=== PATIENT | female | born 1965 | race Caucasian/White ===

== ENCOUNTER 2017-09-06 17:51 | Emergency (ER) | payer OTHER ==
[2017-09-06] MEDS ORDERED: ACETAMINOPHEN 325 MG TABLET PO ONE (18:19)
[2017-09-06] MEDS ORDERED: ONDANSETRON 4 MG TAB.RAPDIS PO ONE (18:19)
--- NOTE | 2017-09-06 18:23 | ER Document Report ---
ED General - General Chief Complaint: Head Injury without LOC Stated Complaint: HEAD INJURY Time Seen by Provider: 09/06/17 18:13 TRAVEL OUTSIDE OF THE [place] IN LAST 30 DAYS: No - HPI Notes: Patient is a 51-year-old female with a history of hypertension and cervical spine surgeries who presents to the ED complaining of a head injury, neck pain, and laceration to the scalp status post fall prior to arrival. Patient states that she was on the second step of her camper trailer and slipped and hit the back of her head off of the step. Patient states that she currently has a headache and nausea. She did not lose any consciousness. Patient states that she is still ambulatory without any difficulties. states that she is at baseline with her speech and mentation. Denies any drug allergies. Denies any smoking or IV drug use. No alcohol involvement. Denies any fever, changes in vision/speech/mentation/hearing, URI, sore throat, chest pain, palpitations, syncope, cough, shortness of breath, wheeze, dyspnea, abdominal pain, nausea/ vomiting/diarrhea, urinary retention, dysuria, hematuria, loss of control of bowel or bladder, numbness/tingling, saddle anesthesia, muscle paralysis/ weakness, or rash. - Related Data Allergies/Adverse Reactions: No Known Allergies Allergy (Verified 09/06/17 17:58) Past Medical History - Social History Smoking Status: Never Smoker Family History: Reviewed & Not Pertinent Review of Systems - Review of Systems -: Yes All other systems reviewed and negative Physical Exam - Vital signs Vitals: Temp Pulse Resp BP Pulse Ox 98.1 F 99 22 H 117/83 94 09/06/17 17:57 09/06/17 17:57 09/06/17 17:57 09/06/17 17:57 09/06/17 17:57 - Notes Notes: PHYSICAL EXAMINATION: accompanied by female nurse GENERAL: Well-appearing, well-nourished and in no acute distress. A&Ox4. Answers questions appropriately. HEAD: + tenderness to the posterior head. No battlesign. + 2cm laceration to the superoposterior scalp. EYES: Pupils equal round and reactive to light, extraocular movements intact, sclera anicteric, conjunctiva are normal. No raccoon eyes/entrapment. No nystagmus ENT: EAC clear b/l. TM's intact b/l without erythema, fluid, or perforation. Nares patent and without discharge. oropharynx clear without exudates. No tonsilar hypertrophy or erythema. Moist mucous membranes. No sinus tenderness. No hemotympanum/CSF discharge. NECK: Normal range of motion, supple without lymphadenopathy. No rigidity. No midline tenderness. + tenderness midline and paraspinal c-spine. LUNGS: Breath sounds clear to auscultation bilaterally and equal. No wheezes rales or rhonchi. HEART: Regular rate and rhythm without murmurs, rubs, gallops. ABDOMEN: Soft, nontender, nondistended abdomen. No guarding, no rebound. No masses appreciated. Normal bowel sounds present. No CVA tenderness bilaterally. Musculoskeletal: Ext b/l: FROM to passive/active. Strength 5+/5. No deficits noted. No bony tenderness of extremities. Back: FROM to passive/active. Strength 5+/5. No vertebral point tenderness, stepoffs, or deformities. No other bony tenderness or ecchymosis. SLR negative b/l. Extremities: No cyanosis, clubbing, or edema b/l. Peripheral pulses 2+. Capillary refill less than 2 seconds. NEUROLOGICAL: NIH 0. GCS 15. Cranial nerves grossly intact. Normal speech, normal gait. Normal sensory, motor exams. Reflexes 2+ b/l. BRETT's negative. Pronator drift negative. Heel/salazar, finger/nose wnl. PSYCH: Normal mood, normal affect. SKIN: see head exam. Warm, Dry, normal turgor, no rashes or lesions noted. Course - Re-evaluation Re-evalutation: 09/06/17 18:23 C collar placed, scans ordered. Meds also ordered 09/06/17 19:47 Patient is an afebrile, well-hydrated, 51-year-old female who presents to the ED with a head injury and laceration. Vitals are acceptable. PE is otherwise unremarkable for any focal neurological deficits. NIH 0, GCS 15, cranial nerves grossly intact. CT scan of the head and the cervical spine were unremarkable for any acute pathology. 3 murray were placed which approximated wound edges appropriately. Patient tolerated procedure well without any complications. Head injury precautions reviewed. Low suspicion at this time for any meningitis, intracranial hemorrhage, ischemic stroke, or fracture at this time. Patient is aware that her condition can change from initial presentation and that she needs to monitor symptoms closely for any acute changes. I will send her home with a CropUp dispense pack. Conservative measures otherwise for symptoms. Recheck with your PCM in 3-5 days. Return to the ED with any worsening/concerning symptoms otherwise as reviewed discharge. Patient is in agreement. Marion will need removed in 7-9 days. Tdap given today. - Vital Signs Vital signs: Temp Pulse Resp BP Pulse Ox 98.1 F 99 22 H 117/83 94 09/06/17 17:57 09/06/17 17:57 09/06/17 17:57 09/06/17 17:57 09/06/17 17:57 Procedures - Laceration/Wound Repair Head Time completed: 19:45 Wound length (cm): 2 Wound's Depth, Shape: Superficial, Linear Laceration pre-procedure: Sterile PPE donned, Sterile drapes applied, Other - Chlorhexidine/saline Wound explored: Clean, No foreign body removed Irrigated w/ Saline (mLs): 80 Wound Debrided: None Wound Repaired With: Marion Number of Sutures: 3 Layer Closure?: No Post-procedure wound care: Sterile dressing applied Post-procedure NV exam normal: Yes Complications: No Discharge - Discharge Clinical Impression: Head injury Qualifiers: Encounter type: initial encounter Qualified Code(s): S09.90XA - Unspecified injury of head, initial encounter Scalp laceration Qualifiers: Encounter type: initial encounter Qualified Code(s): S01.01XA - Laceration without foreign body of scalp, initial encounter Condition: Stable Disposition: HOME, SELF-CARE Instructions: Soap Cleansing (OM), Antibiotic Ointment Protection (OM) Additional Instructions: Do not shower or bathe for 24 hours. After 24 hours you may shower but no submersion of the wound under water. Keep the original dressing on the wound for 24 hours unless the drainage soaks through. Change the dressing daily thereafter and keep the staple material clean from any dried discharge. You may leave the wound open to the air once there is no more discharge. See your PCM in 3-5 days for a recheck. Monitor for any signs of worsening pain or redness, purulent drainage, streaks, and/or fever. Return to the ED if noticing any of the above symptoms or as needed. Take medications as directed. Your sutures will need to be removed in 7-9 days. Return to the ED with any worsening symptoms and/or development of fever, headache, changes in behavior/mentation/vision/speech, chest pain, palpitations , syncope, shortness of breath, trouble breathing, abdominal pain, n/v/d, blood in stool/urine, loss of control of bowel/bladder, urinary retention, muscle weakness/paralysis, saddle anesthesia, numbness/tingling, or other worsening symptoms that are concerning to you. Referrals: [facility] ([facility] [Provider Group] - Follow up as needed
--- NOTE | 2017-09-06 19:36 | RADIOLOGY REPORT (SQ) ---
EXAM DESCRIPTION: CT CERVICAL SPINE WITHOUT COMPLETED DATE/TIME: 09/06/2017 7:08 pm REASON FOR STUDY: head injury/neck pain s/p fall COMPARISON: None. TECHNIQUE: Axial images acquired through the cervical spine without intravenous contrast. Images re viewed with lung, soft tissue and bone windows. Reconstructed coronal and sagittal MPR images review ed. Images stored on PACS. All CT scanners at this facility use dose modulation, iterative reconstruction, and/or weight based d osing when appropriate to reduce radiation dose to as low as reasonably achievable (ALARA). [facility]: Dose Right [facility]: CareDose [facility]: Dose Right [facility]: Teradose 4D [facility]: [employer] RADIATION DOSE: mGy. LIMITATIONS: None. FINDINGS: ALIGNMENT: Anatomic. MINERALIZATION: Normal. VERTEBRAL BODIES: No fractures or dislocation. DISCS: Surgical changes at C5-6. FACETS, LATERAL MASSES, POSTERIOR ELEMENTS: No fractures. No dislocation. No acute findings. HARDWARE: None in the spine. VISUALIZED RIBS: No fractures. LUNG APICES AND SOFT TISSUES: No significant or acute findings. OTHER: No other significant finding. IMPRESSION: NO ACUTE OR SIGNIFICANT FINDINGS IN THE CERVICAL SPINE. TECHNICAL DOCUMENTATION: JOB ID: [id number] Quality ID # [id number]: Final reports with documentation of one or more dose reduction techniques (e.g., Au tomated exposure control, adjustment of the mA and/or kV according to patient size, use of iterative reconstruction technique) 2010 [employer]- All Rights Reserved Reading location - IP/workstation name: [email or web address]
--- NOTE | 2017-09-06 19:37 | RADIOLOGY REPORT (SQ) ---
EXAM DESCRIPTION: CT HEAD WITHOUT COMPLETED DATE/TIME: 09/06/2017 7:08 pm REASON FOR STUDY: head injury s/p fall COMPARISON: None. TECHNIQUE: Axial images acquired through the brain without intravenous contrast. Images reviewed wi th bone, brain and subdural windows. Additional sagittal and coronal reconstructions were generated. Images stored on PACS. All CT scanners at this facility use dose modulation, iterative reconstruction, and/or weight based d osing when appropriate to reduce radiation dose to as low as reasonably achievable (ALARA). [facility]: Dose Right [facility]: CareDose [facility]: Dose Right [facility]: Teradose 4D [facility]: [employer] RADIATION DOSE: mGy. LIMITATIONS: None. FINDINGS: VENTRICLES: Normal size and contour. CEREBRUM: No masses. No hemorrhage. No midline shift. No evidence for acute infarction. Normal gra y/white matter differentiation. No areas of low density in the white matter. CEREBELLUM: No masses. No hemorrhage. No alteration of density. No evidence for acute infarction. EXTRAAXIAL SPACES: No fluid collections. No masses. ORBITS AND GLOBE: No intra- or extraconal masses. Normal contour of globe without masses. CALVARIUM: No fracture. PARANASAL SINUSES: No fluid or mucosal thickening. SOFT TISSUES: No mass or hematoma. OTHER: No other significant finding. IMPRESSION: NORMAL BRAIN CT WITHOUT CONTRAST. EVIDENCE OF ACUTE STROKE: NO. COMMENT: Quality ID # 436: Final reports with documentation of one or more dose reduction techniques (e.g., Automated exposure control, adjustment of the mA and/or kV according to patient size, use of iterative reconstruction technique) TECHNICAL DOCUMENTATION: JOB ID: [id number] [employer]- All Rights Reserved Reading location - IP/workstation name: [email or web address]
[2017-09-06] MEDS ORDERED: HYDROCODONE/ACETAMINOPHEN 5-325 MG (6 TAB/ER DISP) PO PRN (19:51)
[2017-09-06] MEDS ORDERED: DIPH/PERTUSS(ACELL)/TETANUS VAC/PF 0.5 ML SYR (>=10YO) IM ONE (19:51)
[2017-09-06 20:11] VITALS: BP 118/86
== END 2017-09-06 20:10 | disposition home or self-care (01) ==
LOC: ER 17:51
DX: S01.01XA Laceration without foreign body of scalp, initial encounter (principal); M54.2 Cervicalgia; R51 Headache; W10.8XXA Fall (on) (from) other stairs and steps, initial encounter; R11.0 Nausea; I10 Essential (primary) hypertension; Z23 Encounter for immunization; Z98.890 Other specified postprocedural states
CPT/HCPCS: 99283; 90471; 70450; 72125; 90715; 12001; S0119

== ENCOUNTER 2019-10-28 11:07 | Emergency (ER) | payer SELFPAY ==
[2019-10-28 11:14] VITALS: BP 129/70
--- NOTE | 2019-10-28 11:27 | ER Document Report ---
HPI - HPI Time Seen by Provider: 10/28/19 11:24 Notes: CHIEF COMPLAINT: Left foot and ankle injury last night HPI: 54-year-old female with history of multiple surgeries to the left leg from prior fall presenting for evaluation of left foot and ankle injury last night. Tripped going down a ramp injuring the ankle and foot. Complains of pain over the dorsum of the foot, not able to weight-bear on it today because of pain. Denies upper leg pain. Denies other injuries or complaints ROS: See HPI - all other systems were reviewed and are otherwise negative Constitutional: no fever Integumentary: no rash Allergy: no hives Musculoskeletal: + extremity pain or swelling Neurological: no numbness/tingling, no weakness MEDICATIONS: I agree with the patient medications as charted by the RN. ALLERGIES: I agree with the allergies as charted by the RN. PAST MEDICAL HISTORY/PAST SURGICAL HISTORY: Reviewed and agree as charted by RN. SOCIAL HISTORY: Reviewed and agree as charted by RN. FAMILY HISTORY: No significant familial comorbid conditions directly related to patient complaint EXAM: Reviewed vital signs as charted by RN. CONSTITUTIONAL: Alert and oriented and responds appropriately to questions. Well-appearing; well-nourished HEAD: Normocephalic; atraumatic EYES: Conjunctivae clear, sclerae non-icteric ENT: normal nose; no rhinorrhea; moist mucous membranes NECK: Supple without meningismus CARD: Capillary refill less than 3 seconds; symmetric distal pulses RESP: Normal chest excursion without splinting or tachypnea ABD/GI: non-distended BACK: The back appears normal EXT: Tissue swelling over the dorsum of the left foot with tenderness on palpation. Dorsalis pedis and posterior tibial pulses are present in the left foot and ankle. There is mild tenderness over the medial and lateral malleolus on palpation and in the soft tissues around the ankle. No proximal fibular pain on palpation SKIN: Normal color for age and race; warm; dry; good turgor; no acute lesions noted NEURO: Moves all extremities equally; Motor and sensory function intact PSYCH: The patient's mood and manner are appropriate. Grooming and personal hygiene are appropriate. MDM: 54-year-old female with injury primarily over the dorsum of the foot but also around the ankle mortise. Will obtain x-ray to evaluate for fracture Past Medical History - Social History Smoking Status: Unknown if Ever Smoked Family History: Reviewed & Not Pertinent Renal/ Medical History: Denies: Hx Peritoneal Dialysis Vertical Provider Document - INFECTION CONTROL TRAVEL OUTSIDE OF THE [place] IN LAST 30 DAYS: No Course - Re-evaluation Re-evalutation: 10/28/19 12:10 On my review of the patient x-ray she appears to have a midshaft fibular fracture as well as a distal tibial fracture. Patient's initial fractures of the leg where a tibial plateau fracture based on the records she provided that were repaired in April. This was done in [facility]. She would like a referral to a local orthopedic doctor. 10/28/19 12:20 Case was discussed with Dr. Gutierrez attending. He recommends short leg splint. I did place a call to Dr. Love the orthopedic physician on have not received a call back at this time. We will plan to splint patient and refer for outpatient management - Vital Signs Vital signs: Temp Pulse Resp BP Pulse Ox 98.0 F 71 20 129/70 H 99 10/28/19 11:12 10/28/19 11:12 10/28/19 11:12 10/28/19 11:12 10/28/19 11:12 Procedures - Immobilization Left Lower Leg Time completed: 12:53 Pre-Proc Neuro Vasc Exam: Normal Immobilizer type: Sugar tong, Short Leg Posterior Performed by: PCT Post-Proc Neuro Vasc Exam: Normal, Unchanged from pre-exam Alignment checked and good: Yes Discharge - Discharge Clinical Impression: Fall Qualifiers: Encounter type: initial encounter Qualified Code(s): W19.XXXA - Unspecified fall, initial encounter Fracture, fibula closed, shaft Qualifiers: Encounter type: initial encounter Fracture morphology: transverse Fracture alignment: nondisplaced Laterality: left Qualified Code(s): S82.425A - Nondisplaced transverse fracture of shaft of left fibula, initial encounter for closed fracture Fracture of tibia, distal, left, closed Qualifiers: Encounter type: initial encounter Fracture morphology: unspecified fracture morphology Qualified Code(s): S82.302A - Unspecified fracture of lower end of left tibia, initial encounter for closed fracture Condition: Stable Disposition: HOME, SELF-CARE Instructions: Splint Precautions ([facility]) Additional Instructions: Ice and elevate the lower leg as much as possible. Nonweightbearing until evaluated by orthopedics. It is very important that you follow-up closely with orthopedics of your choosing for reevaluation. It does appear that you have 2 fractures in the lower leg. Pain medication as prescribed. No driving if taking narcotics for pain, no alcohol. Prescriptions: Oxycodone HCl/Acetaminophen [Percocet 5-325 mg Tablet] 1 tab PO Q4H PRN #15 tab PRN Reason: Referrals: JONEL AERVALO MD [NO LOCAL MD] - Follow up as needed OZZIE LOVE JR, DO [ACTIVE PROVISIONAL STAFF] - Follow up as needed
[2019-10-28] MEDS ORDERED: OXYCODONE-ACETAMINOPHEN 5-325 MG TABLET PO ONE (12:08)
--- NOTE | 2019-10-28 12:11 | RADIOLOGY REPORT (SQ) ---
EXAM DESCRIPTION: FOOT LEFT COMPLETE IMAGES COMPLETED DATE/TIME: 10/28/2019 11:52 am REASON FOR STUDY: fall COMPARISON: None. NUMBER OF VIEWS: Three views. TECHNIQUE: AP, lateral and oblique radiographic images acquired of the left foot. LIMITATIONS: None. FINDINGS: MINERALIZATION: Normal. BONES: No acute fracture or dislocation. No worrisome bone lesions. JOINTS: No effusions. SOFT TISSUES: No soft tissue swelling. No foreign body. OTHER: No other significant finding. IMPRESSION: NEGATIVE STUDY OF THE LEFT FOOT. NO RADIOGRAPHIC EVIDENCE OF ACUTE INJURY. TECHNICAL DOCUMENTATION: JOB ID: [id number] 2010 [employer]- All Rights Reserved Reading location - IP/workstation name: [email or web address]
--- NOTE | 2019-10-28 12:14 | RADIOLOGY REPORT (SQ) ---
EXAM DESCRIPTION: ANKLE LEFT COMPLETE IMAGES COMPLETED DATE/TIME: 10/28/2019 11:52 am REASON FOR STUDY: fall COMPARISON: None. NUMBER OF VIEWS: Five views. TECHNIQUE: AP, lateral, and oblique radiographic images acquired of the left ankle. Additional view s were obtained of the proximal tibia and fibula. LIMITATIONS: None. FINDINGS: MINERALIZATION: Normal. BONES: Nondisplaced transverse fracture of the medial malleolus. Oblique fracture of the mid fibula. JOINTS: No effusions. SOFT TISSUES: No soft tissue swelling. No foreign body. OTHER: No other significant finding. IMPRESSION: Nondisplaced transverse fracture of the medial malleolus. Oblique fracture of the mid f ibula. TECHNICAL DOCUMENTATION: JOB ID: [id number] 2010 [employer]- All Rights Reserved Reading location - IP/workstation name: [email or web address]
== END 2019-10-28 13:11 | disposition home or self-care (01) ==
LOC: ER 11:07
DX: S82.425A Nondisplaced transverse fracture of shaft of left fibula, initial encounter for closed fracture (principal); S82.302A Unspecified fracture of lower end of left tibia, initial encounter for closed fracture; W01.0XXA Fall on same level from slipping, tripping and stumbling without subsequent striking against object, initial encounter
CPT/HCPCS: 99283